=== PATIENT | female | born 1955 | race Caucasian/White ===

== ENCOUNTER 2023-11-29 20:27 | Emergency (ER) | payer OTHER, SELFPAY ==
[2023-11-30] MEDS ORDERED: Lidocaine 1% PF 5 ML VIAL ONE (00:19)
[2023-11-30] MEDS ORDERED: Bacitracin 1 PK ONE ×2 (00:43→00:46)
== END 2023-11-30 01:04 | disposition home or self-care (01) ==
LOC: ERS 20:27
DX: L60.0 Ingrowing nail (principal); I10 Essential (primary) hypertension; E11.9 Type 2 diabetes mellitus without complications
CPT/HCPCS: 11750; 99282